=== PATIENT | male | born 1995 | race Two or more races ===

== ENCOUNTER 2025-06-10 10:23 | Emergency (ER) | payer MEDICAID, SELFPAY ==
[2025-06-10 10:45] VITALS: BP 149/93; PULSE 77; RESP 16; TEMP 36.7; O2SAT 98; BMI 37.5
--- NOTE | 2025-06-10 10:53 | XR_ITS ---
Examination: CT abdomen with intravenous contrast CT pelvis with intravenous contrast 2-D coronal reconstructions 2-D sagittal reconstructions Date and time of exam: 06/10/2025, 1230 p.m. INDICATION: Right-sided abdominal pain COMPARISON: None CTDI: vol (mGy) 9.75 DLP: (mGycm) 671 Technique: Multiple axial sections of the abdomen and pelvis have been obtained. 64 slice high-resolution scanner used. 3 mm axial sections have been obtained, post intravenous injection of 60 mL of Isovue-370 2-D sagittal, coronal reconstructions obtained. Low dose protocols were performed. One or more of the following dose reduction techniques were used; automated exposure control, adjustment of the mA and/or KV according to patient size, use of iterative reconstruction technique. Findings: Lower chest: No cardiomegaly or pericardial effusion. Indeterminate solid noncalcified lobulated nearly 9 mm nodule is present in the periphery of the lateral basal segment of the right lower lobe (axial image 63). No airspace consolidation or pleural effusion. Liver: Normal variant Serenity lobe morphology with the liver measuring at approximately 18.7 cm in craniocaudal dimension.. Otherwise, smooth margins and homogeneous attenuation. Biliary system: Cholelithiasis without evidence for acute cholecystitis, choledocholithiasis or biliary ductal obstruction. Spleen: Within normal limits of size. No solid mass. Pancreas: No apparent infiltrative mass. No main pancreatic duct dilatation. No acute inflammatory changes. Adrenal glands: No significant findings. Kidneys and ureters: No solid mass. No calculi or hydroureteronephrosis. No evidence for acute pyelonephritis. Bladder: Suboptimal assessment due to under distention but no calculus is seen. Pelvic organs: No concerning focal lesion or acute abnormality. Lymph nodes/retroperitoneum: No pathologically enlarged lymph nodes or other masses. No hematoma or other abnormal collections. Vessels: No abdominal aortic aneurysm. Bowel/Peritoneal cavity: Limited assessment of bowel due to segments of underdistention and lack of oral contrast. No contour deforming mass. No obstructive or acute inflammatory changes. Retrocecal/retrocolonic appendix without evidence for acute inflammation. No evidence for acute colonic diverticulitis. No ascites or free air. No concerning peritoneal thickening. Abdominal/Pelvic wall: Very small proximal bilateral fat-containing inguinal hernias. Very small fat-containing umbilical hernia noted. Musculoskeletal: No recent fractures or aggressive bone lesions detected. IMPRESSION: Negative CT for acute abnormality in the abdomen and pelvis. The appendix is normal. Cholelithiasis without evidence for acute cholecystitis, choledocholithiasis or biliary ductal obstruction. Indeterminate solid lobulated nearly 9 mm right lower lobe nodule for which follow-up chest CT in 3 months is recommended.
[2025-06-10 11:39] LABS: Alanine Aminotransferase 41 U/L (10-49); Albumin, Serum 5.4 gm/dL (3.5-5.0); Albumin/Globulin Ratio 2.3 (1.2-2.2); Alkaline Phosphatase 86 U/L (46-116); Anion Gap 9 (7-16); Aspartate Amino Transferase 23 U/L (0-34); BUN/Creatinine Ratio 10 Ratio (12-20); Bilirubin,Total 0.6 mg/dL (0.3-1.2); Blood Urea Nitrogen 9 mg/dL (9-23); Calcium 10.1 mg/dL (8.3-10.6); Calcium (Corrected) 10.1 mg/dL (8.5-10.1); Carbon Dioxide 28.5 mMol/L (20.0-31.0); Chloride 106 mMol/L (98-107); Creatinine (Component) 0.9 mg/dL (0.6-1.3); Estimated Creatinine Clearance 143.8 mL/min (>60); Globulin 2.3 gm/dL (2.3-3.5); Glucose 97 mg/dL (74-106); Lipase 45 U/L (12-53); Osmolality,Calculated 283 (275-295); Potassium 3.9 mMol/L (3.4-5.1); Sodium 143 mMol/L (136-145); Total Protein 7.7 gm/dL (5.7-8.2); eGFR > 60 See Note
[2025-06-10 11:41] LABS: Basophils # (Auto) 0.0 Thou/mm3 (0.0-0.2); Basophils % (Auto) 0 % (0-2.5); Eosinophils # (Auto) 0.3 Thou/mm3 (0.0-0.5); Eosinophils % (Auto) 3 % (0-10); Hematocrit 50.2 % (41.0-53.0); Hemoglobin 17.5 g/dL (13.5-16.0); Immature Granulocytes Auto 0.02 Thou/mm3 (0.00-0.00); Lymphocytes # (Auto) 2.7 Thou/mm3 (1.0-4.8); Lymphocytes % (Auto) 30 % (10-50); Mean Corpuscular HGB Conc 34.9 g/dl (31.0-37.0); Mean Corpuscular Hemoglobin 30.8 pg (25.0-35.0); Mean Corpuscular Volume 88 fL (80-100); Monocytes # (Auto) 0.7 Thou/mm3 (0.0-0.8); Monocytes % (Auto) 7 % (0-12); Neutrophils # (Auto) 5.3 Thou/mm3 (1.8-7.7); Neutrophils % (Auto) 59 % (37-80); Nucleated Red Blood Cell # 0.00 Thou/mm3 (0.00-0.00); Nucleated Red Blood Cell % 0 /100 WBC (0); Platelet Count 252 Thou/mm3 (140-440); RDW Standard Deviation 41.1 fL (35.1-43.9); Red Blood Count 5.69 Miln/mm3 (4.50-5.90); White Blood Count 9.0 Thou/mm3 (3.8-10.6)
[2025-06-10 12:00] LABS: Collection Type, Urine Clean Catch; Squamous Epithelial Cell,Urine 0 /hpf (0-5)
[2025-06-10 12:12] LABS: Bilirubin,Urine Negative (Negative); Blood,Urine Negative (Negative); Clarity,Urine Clear (Clear/Hazy); Color,Urine Lt-Yellow (Lt Yel-Yel); Culture Indicated,Urine Not Indicated; Glucose, Urine Negative (Negative); Ketones,Urine Trace (Negative); Leukocyte Esterase,Urine Negative (Negative); Nitrite,Urine Negative (Negative); PH,Urine 6.0 (5.0-7.0); Protein,Urine Negative (Neg - Trace); RBC,Urine 2 /hpf (0-3); Specific Gravity,Urine 1.022 (1.001-1.035); Urobilinogen,Urine Negative mg/dL (0.0-1.0); WBC,Urine < 1 /hpf (0-5)
--- NOTE | 2025-06-10 13:31 | EDNOTE_ITS ---
<Statement entered by Keysha Edwards MD - 06/11/25 09:33> As co-signing physician, I was present and available for consult prn. I concur with the plan and care as documented by the midlevel provider. ED Abdominal Pain RME/HPI General Chief Complaint: Abdominal Pain Stated complaint: RLQ ABD PAIN, NAUSEA Time seen by provider: 06/10/25 10:53 Arrival date/time: 06/10/25 10:23 30-year-old male presents to the Emergency Department for complaints of right- sided abdominal pain and nausea reports symptom onset this morning Limitations: no limitations Related Data Previous Rx's ?Medication ?Instructions ?Recorded ibuprofen 800 mg tablet 800 mg PO TID PRN pain #30 t abs 06/10/25 metoclopramide HCl 10 mg tablet 10 mg PO Q6H PRN nause a and 06/10/25 (Reglan) vomiting #30 tabs Allergies Allergy/AdvReac Type Severity Reaction Status Date / Time No Known Allergies Allergy Verified 06/10/25 10:26 Review of Systems Review of Systems Systems Reviewed: All systems reviewed, normal except as documented Constitutional Constitutional: Reports system reviewed and no additional complaints, except as documented, Denies fever(s) and Denies headache(s) Eyes Eyes: Reports system reviewed and no additional complaints, except as documented and Denies blurry vision ENT Ears, Nose, Mouth, and Throat: Reports system reviewed and no additional complaints, except as documented, Denies headache(s), Denies nasal congestion and Denies nasal discharge Cardiovascular Cardiovascular: Reports system reviewed and no additional complaints, except as documented, Denies chest pain and Denies dyspnea Respiratory Respiratory: Reports system reviewed and no additional complaints, except as documented, Denies chest congestion, Denies cough and Denies dyspnea Gastrointestinal Gastrointestinal: Reports system reviewed and no additional complaints, except as documented and Reports abdominal pain Integumentary/Breasts Skin/Breast: Reports system reviewed and no additional complaints, except as documented and Denies rash Neurologic Neurologic: Reports system reviewed and no additional complaints, except as documented, Reports as per HPI and Denies headache(s) Past Medical History Past Medical History CARDIAC: Negative Cardiac Disorders RESPIRATORY: Positive Asthma (CPAP) GENITOURINARY: Negative Renal Disease ENDOCRINE: Negative Diabetes Mellitus Type 2 HEMATOLOGIC: Negative Sickle Cell Disease Social History SMOKING STATUS: Never smoker ED Exam General Limitations: Present no limitations General appearance: Present alert and in no apparent distress Head Head exam: Present atraumatic Eye Eye exam: Present normal appearance, PERRL and EOMI ENT ENT exam: Present normal exam, normal oropharynx and mucous membranes moist Neck Neck exam: Present normal inspection, full ROM and trachea midline Chest Chest inspection: Present normal inspection and symmetric chest wall rise Respiratory Respiratory exam: Present normal lung sounds bilaterally Cardiovascular Cardiovascular exam: Present regular rate, normal rhythm and normal heart sounds Abdominal Exam Abdominal exam: Present soft and normal bowel sounds; Absent distention, tenderness, guarding, rebound or rigidity Abdominal tenderness: Present RLQ; Absent RUQ Extremities Exam Extremities exam: Present normal inspection and full ROM Back Exam Back exam: Present normal inspection and full ROM Neurological Exam Neurological exam: Present alert, oriented X3 and CN II-XII intact Psychiatric Psychiatric exam: Present normal affect and normal mood Skin Skin exam: Present warm, dry, intact and normal color Course Quality Measures none Orders Category Date Time Status CT Screening NOW Care 06/10/25 10:53 Completed IV [Insert IV] NOW Care 06/10/25 10:[address] abdomen pelvis w con Stat Exams 06/10/25 10:53 Completed CBC Stat Lab 06/10/25 11:10 Completed Comprehensive Metabolic Panel Stat Lab 06/10/25 11:10 Completed Lipase Stat Lab 06/10/25 11:10 Completed UA, C/S IF [Urinalysis, C/S if Indicated] Stat Lab 06/10/25 11:52 Completed Vital Signs Vital signs: Vital Signs Temperature 98.1 F 06/10/25 10:45 Pulse Rate 77 06/10/25 10:45 Respiratory Rate 16 06/10/25 10:45 Blood Pressure 149/93 H 06/10/25 10:45 Pulse Oximetry (%) 98 06/10/25 10:45 Oxygen Delivery Method Room Air 06/10/25 10:45 O2 saturation 98% room air within normal limits Abdominal Pain MDM MDM Narrative MDM Narrative:: 30-year-old male presents to the Emergency Department for complaints of right- sided abdominal pain and nausea reports symptom onset this morning On exam patient well-appearing patient does not appear look toxic acute distress Lab work and imaging obtained Patient found to have cholelithiasis without cholecystitis patient has no elevated liver enzymes Patient also found to have an incidental lung nodule which was instructed to follow-up on an outpatient basis Patient discharged home in no distress to follow-up with primary care doctor in the next 24 to 48 hours and for any worsening symptoms to return to the ER immediately Patient data External records reviewed:: [facility] previous records Clinical information provided by:: patient Social determinants that could affect healthcare access:: none Patient has the following chronic illnesses:: None How is presenting disease/condition affected by chronic disease/condition?: no chronic disease Evaluation data The following diagnostics were reviewed and interpreted by me:: lab results and radiology exam(s) Lab and/or radiology exams considered but not ordered:: Labs radiology obtained Interpretation Summary: Reviewed by me Medications / Prescriptions Medications or Prescriptions considered but not ordered:: Given Medication administrations:: Given Consultations Consultation(s) initiated? (list below): No Diagnosis Differential diagnosis abdominal pain: abdominal pain, acute appendicitis and pancreatitis Most likely diagnosis given after review of the tests above:: Abdominal pain Admission Indicated Admission indicated?: not indicated Admission Request Was there a request for admission?: No Disposition Plan Disposition Plan: Discharge Discharge Attestation Discharge Attestation: The patient and all family members were given an opportunity to ask questions and understood the discharge instructions. Discharge instructions specifically effects, indications for sooner follow up or return to the emergency department, and the expected course of current diagnosis. Patient condition: Stable Discharge Plan Plan Patient Disposition: HOME (Self Care) Discharge Disposition comment: Stable Prescriptions/Referrals Prescriptions/Med Rec: New ibuprofen 800 mg tablet 800 mg PO TID PRN (Reason: pain) Qty: 30 0RF metoclopramide HCl [Reglan] 10 mg tablet 10 mg PO Q6H PRN (Reason: nausea and vomiting) Qty: 30 0RF Referrals: Mono Nguyen MD [Primary Care Provider, Family Practice] - In 1 week Problem List Clinical Impression: Cholelithiasis, Incidental lung nodule Patient/Caregiver Discharge Instructions Education Materials: Treating Gallstones Additional Instructions: Please follow-up with PCP for further evaluation and referral to GI specialist/general surgeon for cholelithiasis You have an incidental 9 mm right lower lobe lung nodule I would like you to have a repeat CT scan in 3 months of your chest to document stability Print Language: Urdu Stand Alone Forms: Madalyn Award Info., Work/School Release, Patient Portal Info Letter PA/[employer] Supervising Physician PA/[employer] Supervising Physician: Dr. Edwards
== END 2025-06-10 14:13 | disposition home or self-care (01) ==
PROVIDERS: Emergency Provider Nurse Practitioner Primary Care; PCP Family Medicine
DX: K80.20 Calculus of gallbladder without cholecystitis without obstruction (principal)
CPT/HCPCS: 36415; 74177; 80053; 81001; 83690; 85025; 99283; A4649; Q9967